=== PATIENT | male | born 1940 | race Caucasian/White ===

== ENCOUNTER 2018-07-03 05:35 | Day surgery (SDC) | payer OTHER ==
[~2018-07-03 05:35] MED LIST: ADVAIR 100-501 EACH IH; ALBUTEROL0.63 MG/3 IH; COZAAR100 MG
== END 2018-07-03 15:30 | disposition home or self-care (01) ==
LOC: CIR.AMB 05:35
DX: K40.90 Unilateral inguinal hernia, without obstruction or gangrene, not specified as recurrent (principal)

== ENCOUNTER 2018-08-13 00:43 | Emergency (ER) | payer OTHER ==
[~2018-08-13] VITALS: Ht 165.1 cm; Wt 68.0 kg
[2018-08-13] MEDS ORDERED: COZAAR100 MG PO (03:16)
== END 2018-08-13 03:23 | disposition home or self-care (01) ==
LOC: ER 00:43
DX: I16.0 Hypertensive urgency (principal); I10 Essential (primary) hypertension

== ENCOUNTER 2024-05-13 07:13 | Outpatient (CLI) | payer OTHER ==
[~2024-05-13 07:13] MED LIST changes: +COZAAR100 MG PO
== END 2024-05-13 07:20 | disposition home or self-care (01) ==
LOC: SONOGRAMA 07:13
PROVIDERS: ATTEND General Practice
DX: F10.10 Alcohol abuse, uncomplicated (principal); D64.9 Anemia, unspecified; D63.0 Anemia in neoplastic disease; J44.9 Chronic obstructive pulmonary disease, unspecified

== ENCOUNTER 2024-07-25 07:25 | Outpatient (CLI) | payer OTHER | END 2024-07-25 07:28 | disposition home or self-care (01) | LOC: TOM 07:25 | DX: J44.9 Chronic obstructive pulmonary disease, unspecified (principal) ==